=== PATIENT | male | born 1990 | race Caucasian/White ===

== ENCOUNTER 2023-03-15 13:26 | Emergency (ER) | payer SELFPAY ==
--- NOTE | ~2023-03-15 | XR_ITS ---
XR finger 2nd LT min 2V 03/15/2023 15:41 Indication: Laceration. Evaluate for foreign body. Procedure: 3 views left second finger Comparison: No prior studies for comparison. Findings: There is a small ossific density in adjacent to the tuft of the second distal phalanx which may represent an age-indeterminate avulsion fracture. This less likely represents a foreign body. Mi ld soft tissue swelling. No acute fracture. Impression: 1: Ossific density adjacent to the second distal phalanx tuft, most likely age-indeterminate avulsion fracture. Foreign body less favored. Reviewed, dictated and finalized at location B. [employer] Impression: 1: Ossific density adjacent to the second distal phalanx tuft, most likely age- indeterminate avulsion fracture. Foreign body less favored.
[2023-03-15 13:33] VITALS: BP 144/93; PULSE 88; RESP 18; TEMP 36.6; O2SAT 98
--- NOTE | 2023-03-15 15:03 | ED.WOUNDLAC ---
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 Patient states he has injury to this exact same location from a similar mechanism some several years ago for which he was told that he injury to the underlying bone. He cannot recall his last tetanus shot. 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 Currently having paresthesias as well. Related Data Allergies Allergy/AdvReac Type Severity Reaction Status Date / Time No Known Allergies Allergy Unverified 03/15/23 15:28 [facility] Past Medical History Medical History (Updated 03/16/23 @ 10:12 by Ayala Rainey MD) Right hand dominant Social History Social History (Updated 03/16/23 @ 10:12 by Ayala Rainey MD) Current Housing: I Have Housing Living arrangements: with family Additional living arrangements comments: , lives in [facility] Occupation/Education: occupation Additional occupation/education comments: [employer] Exam Narrative: GENERAL: Well-appearing, well-nourished, and in no acute distress. HEAD: Normocephalic, atraumatic. EYES: Non injected, non icteric ENT: Nares clear, no rhinorrhea or epistaxis. NECK: Supple. CHEST: Speaking in complete sentences. No respiratory distress. HEART: Regular rate and rhythm. 2+ radial pulse. No pallor. Brisk capillary refill in affected finger. ABDOMEN: Soft, nondistended. EXTREMITIES: No edema. Laceration to 2nd digit of left hand between DIP and PIP. Oozing blood, not pulsatile. Able to make a fist. Able to bend 2nd digit at MCP and PIP; some difficulty isolating DIP to demonstrate movement. Sensation intact to gross touch along pad and lateral aspects of 2nd digit proximal and distal to injury. SKIN: Warm, dry. NEURO: No focal deficits. Alert and oriented . PSYCH: Normal mood and affect. Course Vital Signs Vital signs: Vital Signs Temperature 97.9 F 03/15/23 13:33 Pulse Rate 88 03/15/23 13:33 Respiratory Rate 18 03/15/23 13:33 Blood Pressure 144/93 H 03/15/23 13:33 Pulse Oximetry 98 03/15/23 13:33 Oxygen Delivery Room Air 03/15/23 13:33 Temperature 97.9 F 03/15/23 17:11 Pulse Rate 80 03/15/23 17:11 Respiratory Rate 18 03/15/23 17:11 Blood Pressure 137/82 03/15/23 17:11 Pulse Oximetry 99 03/15/23 17:11 Oxygen Delivery Room Air 03/15/23 13:33 Procedures Laceration Laceration 1: Date: 03/15/23 Site: hand Side (If applicable): left Size (cm): 2 Description: linear Depth: simple, single layer Local Anesthetic: lidocaine 1% Amount of anesthesia used (mL): 10 Pre-repair: wound explored and irrigated extensively ====== Skin Level ====== Skin layer closed with: nylon Size (cm): 5-0 Number of sutures: 4 Technique: simple, interrupted ====== Subcutaneous Layer ====== ====== Muscle Layer ====== ====== Tendon Layer ====== Dressing: Finger nerve block performed along base of each side of finger with 8cc total lidocaine; additional 2cc injected locally to achieve better anesthesia. MDM - Wound/Laceration MDM Narrative Medical decision making narrative: Patient is a right-hand dominant male who accidentally lacerated his left index finger with carpet knife while working. He has a prior injury to this finger in nearly the same location from similar mechanism several years ago. Tetanus immunization is unknown. Tetanus is updated and given PO pain medication. Xray shows old bony injury. Wound irrigated and repaired as above. After
[2023-03-15] MEDS: TETANUS,DIPHTHERIA,AC PERTUSSIS ADULT (0.5 ML) BOOSTRIX IM (15:25)
[2023-03-15] MEDS: ACETAMINOPHEN 325 MG TABLET 650 MG PO (15:41)
[2023-03-15] MEDS: HYDROcodone/acetaminophen (*CRX) 5-325 MG TABLET 1 TAB PO (15:42)
[2023-03-15 17:11] VITALS: BP 137/82; PULSE 80; RESP 18; TEMP 36.6; O2SAT 99
== END 2023-03-15 17:12 | disposition home or self-care (01) ==
PROVIDERS: Emergency Provider Student in an Organized Health Care Education/Training Program
DX: S61.211A Laceration without foreign body of left index finger without damage to nail, initial encounter (principal); Z23 Encounter for immunization; W26.0XXA Contact with knife, initial encounter
CPT/HCPCS: 12001; 73140; 90471; 90715; 99283; A9270